=== PATIENT | female | born 1980 | race Caucasian/White ===

== ENCOUNTER 2017-09-10 06:40 | Emergency (ER) | payer BC, OTHER, SELFPAY ==
[2017-09-10 07:02] VITALS: BP 146/97
[2017-09-10] MEDS ORDERED: methylPREDNISolone Sodium Succinate 125 MG/2 ML SDV IM STA (07:31)
--- NOTE | 2017-09-10 07:32 | EDM.PDOC ---
ED HPI GENERAL MEDICAL PROBLEM - General Chief Complaint: General Stated Complaint: SORE THROAT/CAN'T EAT CAN'T DRINK Time Seen by Provider: 09/10/17 07:22 Source of Information: Reports: Patient History Limitations: Reports: No Limitations - History of Present Illness INITIAL COMMENTS - FREE TEXT/NARRATIVE: Angelina is a 37 yo female who presents to the ER this morning with concerns of a sore throat. States she started to notice discomfort yesterday afternoon and has gotten worse since. States she has difficulty swallowing or eating anything. Has a history of strep throat. Also is complaining of left ear pain. 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 Right Throat Pain Score (Numeric/FACES): 8 - Related Data Allergies Allergy/AdvReac Type Severity Reaction Status Date / Time cefaclor [From Ceclor] Allergy Rash Verified 09/10/17 06:47 sumatriptan [From Imitrex] Allergy Airway Verified 09/10/17 06:47 Tightness sumatriptan succinate Allergy Airway Verified 09/10/17 06:47 [From Imitrex] Tightness Home Meds: Home Meds Calcium Carbonate [Calcium] 1,000 mg PO DAILY 03/06/14 [History] Cholecalciferol (Vitamin D3) [Vitamin D3] 4,000 unit PO DAILY 03/06/14 [History] Desog-E.Estradiol/E.Estradiol [Azurette 28 Day] 1 each PO DAILY 03/06/14 [ History] Pantoprazole Sodium [Protonix] 40 mg PO DAILY 03/06/14 [History] Vitamin B Complex [Super B-50 Complex] 1 each PO DAILY 03/06/14 [History] Naratriptan HCl [Naratriptan] 2.5 mg PO BID PRN 10/12/15 [History] Cyclobenzaprine [Flexeril] 10 mg PO BEDTIME PRN 06/18/16 [History] Albuterol/Ipratropium [DuoNeb 3.0-0.5 MG/3 ML] 3 ml NEB QIDRT 7 Days neb [Rx] Past Medical History HEENT History: Reports: Impaired Vision Respiratory History: Reports: Pneumonia, Recurrent Gastrointestinal History: Reports: GERD Genitourinary History: Reports: None 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: Neurological History: Reports: Migraines Endocrine/Metabolic History: Reports: Other (See Below) Other Endocrine/Metabolic History: LUMPS ON THRYOID - Infectious Disease History Infectious Disease History: Reports: Chicken Pox - Past Surgical History GI Surgical History: Reports: Appendectomy, Cholecystectomy Female Surgical History: Reports: Section Social & Family History - Family History Family Medical History: Noncontributory - Tobacco Use Smoking Status *Q: Current Every Day Smoker Years of Tobacco use: 6 Packs/Tins Daily: 0.5 Second Hand Smoke Exposure: No - Recreational Drug Use Recreational Drug Use: No ED ROS GENERAL - Review of Systems Review Of Systems: See Below Constitutional: Reports: Decreased Appetite HEENT: Reports: Ear Pain, Throat Pain. Denies: Ear Discharge, Sinus Problem Respiratory: Reports: No Symptoms Cardiovascular: Reports: No Symptoms ED EXAM, GENERAL - Physical Exam Exam: See Below Exam Limited By: No Limitations General Appearance: Alert, No Apparent Distress Ears: Normal External Exam, Normal Canal, Hearing Grossly Normal, Normal TMs Nose: Normal Inspection, No Blood Throat/Mouth: Normal Inspection, Normal Voice, No Airway Compromise, Other ( mild erythema in posterior pharynx. No exudate noted. ) Head: Atraumatic, Normocephalic Neck: Tender Lateral. No: Lymphadenopathy (L), Lymphadenopathy (R) Respiratory/Chest: No Respiratory Distress, Lungs Clear, Normal Breath Sounds, No Accessory Muscle Use Cardiovascular: Regular Rate, Rhythm, No Murmur Skin Exam: Warm, Dry, Intact, Normal Color, No Rash Lymphatic: No Adenopathy Course - Vital Signs Last Recorded V/S: Last Vital Signs Temp 97.7 F 09/10/17 06:50 Pulse 97 09/10/17 06:50 Resp 18 09/10/17 06:50 BP 146/97 H 09/10/17 06:50 Pulse Ox 98 09/10/17 06:50 - Orders/Labs/Meds Meds: Medications Discontinued Medications Generic Name Dose Route Start Last Admin Trade Name Arleen PRN Reason Stop Dose Admin Methylprednisolone Sodium Succinate 125 mg 09/10/17 07:31 09/10/17 07:37 Solu-Medrol IM 09/10/17 07:32 125 mg NOW STA Administration Departure - Departure Time of Disposition: 07:40 Disposition: Home, Self-Care 01 Clinical Impression: Sore throat (viral) - Discharge Information Instructions: Viral Respiratory Infection, [id number] Referrals: Chetan Leyva MD [Primary Care Provider] - Forms: ED Department Discharge Additional Instructions: 1) Rest 2) Recommend soft foods/liquid diet 3) Push fluids 4) Recommend Tylenol and ibuprofen for discomfort 5) May try OTC therapies as well as discussed, Mucinex, etc... 6) If symptoms worsen or any concerns, recommend reevaluation. - Problem List & Annotations (1) Sore throat (viral) SNOMED Code(s): 7055398 Code(s): J02.9 - ACUTE PHARYNGITIS, UNSPECIFIED Status: Acute - Problem List Review Problem List Initiated/Reviewed/Updated: Yes - Assessment/Plan Plan: Strep screen is negative. No current fevers. Discussed viral etiology and symptomatic cares. Follow up if any concerns.
== END 2017-09-10 07:40 | disposition home or self-care (01) ==
LOC: CC.ED 06:40
DX: J02.8 Acute pharyngitis due to other specified organisms (principal); K21.9 Gastro-esophageal reflux disease without esophagitis; F17.210 Nicotine dependence, cigarettes, uncomplicated; Z79.899 Other long term (current) drug therapy; Z88.1 Allergy status to other antibiotic agents; Z88.8 Allergy status to other drugs, medicaments and biological substances
CPT/HCPCS: 87430; 96372; 99282; J2930

== ENCOUNTER 2019-08-19 00:55 | Inpatient (IN) | payer OTHER ==
[2019-08-19] MEDS ORDERED: Acetaminophen 500 MG Tab PO ONE (01:06)
[2019-08-19 01:45] LABS: CHLORIDE,CL 102 mEq/L (98-106); SODIUM,NA 138 mEq/L (136-145)
--- NOTE | 2019-08-19 01:58 | EDM.PDOC ---
ED HPI GENERAL MEDICAL PROBLEM - General Chief Complaint: Fever Stated Complaint: "Chills, nauseated and pain on right side" Time Seen by Provider: 08/19/19 01:22 Source of Information: Reports: Patient History Limitations: Reports: No Limitations - History of Present Illness INITIAL COMMENTS - FREE TEXT/NARRATIVE: Patient presents to ER with right side pain and chills. States started having intermittent pain on Friday but much worse this evening. Reports could not stop shaking at home. Feels mildly nauseated. No vomiting. No blood in stool , diarrhea or constipation. Does admit to burning with urination, no noted blood. No vaginal bleeding or discharge. Denies dyspareunia. Reports was seen recently for hypertension, started on Lisinopril. Worried about her kidney due to pain. Has been trying to push fluids. Decreased solid food intake. History of appendectomy and cholecystectomy. Onset: Gradual Duration: Day(s):, Getting Worse Location: Reports: Abdomen Quality: Reports: Sharp, Stabbing Severity: Severe Associated Symptoms: Reports: Cough, Fever/Chills, Loss of Appetite, Nausea/ Vomiting. Denies: Chest Pain, Headaches, Shortness of Breath Right Back Pain Score (Numeric/FACES): 8 - Related Data Allergies Allergy/AdvReac Type Severity Reaction Status Date / Time cefaclor [From Ceclor] Allergy Rash Verified 08/19/19 01:24 sumatriptan [From Imitrex] Allergy Airway Verified 08/19/19 01:24 Tightness sumatriptan succinate Allergy Airway Verified 08/19/19 01:24 [From Imitrex] Tightness Home Meds: Home Meds Calcium Carbonate [Calcium] 1,000 mg PO DAILY 03/06/14 [History] Cholecalciferol (Vitamin D3) [Vitamin D3] 4,000 unit PO DAILY 03/06/14 [History] Desog-E.Estradiol/E.Estradiol [Azurette 28 Day] 1 each PO DAILY 03/06/14 [ History] Vitamin B Complex [Super B-50 Complex] 1 each PO DAILY 03/06/14 [History] Naratriptan HCl [Naratriptan] 2.5 mg PO BID PRN 10/12/15 [History] Cyclobenzaprine [Flexeril] 10 mg PO BEDTIME PRN 06/18/16 [History] Albuterol/Ipratropium [DuoNeb 3.0-0.5 MG/3 ML] 3 ml NEB QIDRT 7 Days neb [Rx] Dexlansoprazole [Dexilant] 60 mg PO DAILY 08/19/19 [History] Hydrocodone/Acetaminophen [Hydrocodon-Acetaminophen 5-325] 1 each PO ASDIRECTED 08/19/19 [History] Lisinopril [Zestril] 10 mg PO DAILY 08/19/19 [History] Zolpidem [Ambien] 5 mg BEDTIME 08/19/19 [History] Past Medical History HEENT History: Reports: Impaired Vision Respiratory History: Reports: Pneumonia, Recurrent Gastrointestinal History: Reports: GERD Genitourinary History: Reports: None 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: Neurological History: Reports: Migraines Endocrine/Metabolic History: Reports: Other (See Below) Other Endocrine/Metabolic History: LUMPS ON THRYOID - Infectious Disease History Infectious Disease History: Reports: Chicken Pox - Past Surgical History GI Surgical History: Reports: Appendectomy, Cholecystectomy Female Surgical History: Reports: Section Social & Family History - Family History Family Medical History: Noncontributory - Tobacco Use Smoking Status *Q: Former Smoker Years of Tobacco use: 5 Used Tobacco, but Quit: No - Recreational Drug Use Recreational Drug Use: No ED ROS GENERAL - Review of Systems Review Of Systems: See Below Constitutional: Reports: Fever, Chills, Malaise, Weakness, Fatigue, Decreased Appetite HEENT: Reports: Ear Pain. Denies: Sinus Problem, Throat Pain, Vertigo Respiratory: Reports: Cough. Denies: Shortness of Breath Cardiovascular: Denies: Chest Pain, Edema, Lightheadedness Endocrine: Reports: Fatigue GI/Abdominal: Reports: Abdominal Pain, Decreased Appetite, Nausea. Denies: Constipation, Diarrhea, Vomiting : Reports: Dysuria, Frequency Musculoskeletal: Reports: No Symptoms Skin: Reports: No Symptoms Neurological: Reports: No Symptoms ED EXAM, GI/ABD - Physical Exam Exam: See Below Exam Limited By: No Limitations General Appearance: Alert, WD/WN, Mild Distress Ears: Normal External Exam, Normal TMs Nose: Normal Inspection, Normal Mucosa, No Blood Throat/Mouth: Normal Inspection, Normal Oropharynx Head: Normocephalic Neck: Normal Inspection, Supple, Non-Tender Respiratory/Chest: No Respiratory Distress, Lungs Clear, Normal Breath Sounds Cardiovascular: Regular Rate, Rhythm GI/Abdominal Exam: Normal Bowel Sounds, Soft, Guarding, Tender (RUQ, RLQ, flank area) Back Exam: Normal Inspection Extremities: Normal Inspection, No Pedal Edema Neurological: Alert, Oriented Skin Exam: Warm, Dry Course - Vital Signs Last Recorded V/S: Last Vital Signs Temp 104.0 F H 08/19/19 01:18 Pulse 130 H 08/19/19 01:18 Resp 20 08/19/19 01:18 BP 143/78 H 08/19/19 01:18 Pulse Ox 100 08/19/19 01:18 - Orders/Labs/Meds Orders: Active Orders 24 hr Category Date Time Status C-REACTIVE PROTEIN [CHEM] Stat Lab 08/19/19 01:21 Received COMPREHENSIVE METABOLIC PN,CMP [CHEM] Stat Lab 08/19/19 01:21 Received CULTURE BLOOD [BC] Stat Lab 08/19/19 01:18 Received CULTURE BLOOD [BC] Stat Lab 08/19/19 01:36 Received CULTURE URINE [RM] Stat Lab 08/19/19 01:21 Received Blood Culture x2 Reflex Set [OM.PC] Stat Oth 08/19/19 01:13 Ordered Labs: Laboratory Tests 08/19/19 08/19/19 08/19/19 Range/Units 01:21 01:21 01:21 WBC 10.2 H (5.0-10.0) 10^3/uL RBC 4.26 (4.00-5.50) 10^6/uL Hgb 12.3 (12.0-16.0) g/dL Hct 37.0 (37.0-47.0) % MCV 86.9 (82.0-94.0) fL MCH 28.9 (27.0-32.0) pg MCHC 33.2 (33.0-38.0) g/dL RDW Coeff of Miriam 13.1 (11.0-15.0) % Plt Count 228 (150-400) 10^3/uL Neut % (Auto) 90.5 H (35-85) % Lymph % (Auto) 6.5 L (10-55) % [place] % (Auto) 2.5 (0-16) % Eos % (Auto) 0.3 (0-5) % Baso % (Auto) 0.2 (0-3) % Neut # (Auto) 9.22 H (1.80-7.00) 10^3/uL Lymph # (Auto) 0.66 L (1.00-4.80) 10^3/uL [place] # (Auto) 0.25 (0.00-0.80) 10^3/uL Eos # (Auto) 0.03 (0.00-0.45) 10^3/uL Baso # (Auto) 0.02 10^3/uL Lactic Acid 1.5 (0.4-2.0) mmol/L Urine Color Straw (YELLOW) Urine Appearance Slightly cloudy (CLEAR) Urine pH 5.5 (4.5-8.0) Ur Specific [place] 1.015 (1.003-1.020) Urine Protein 100 H (NEGATIVE) mg/dL Urine Glucose (UA) Negative (NEGATIVE) mg/dL Urine Ketones Negative (NEGATIVE) mg/dL Urine Occult Blood Moderate H (NEGATIVE) Urine Nitrite Positive H (NEGATIVE) Urine Bilirubin Negative (NEGATIVE) Urine Urobilinogen 0.2 (0.2-1.0) EU/dL Ur Leukocyte Esterase Trace H (NEGATIVE) Urine RBC 10-20 H (0-5) /HPF Urine WBC 75-100 H (0-5) /HPF Urine WBC Clumps Few H (NOT SEEN) /HPF Ur Squamous Epith Cells Few H (NOT SEEN) /HPF Urine Bacteria Moderate H (NOT SEEN) /HPF Urinalysis Comment See note Meds: Medications Discontinued Medications Generic Name Dose Route Start Last Admin Trade Name Freq PRN Reason Stop Dose Admin Acetaminophen 1,000 mg 08/19/19 01:06 08/19/19 01:11 Tylenol Extra Strength PO 08/19/19 01:07 1,000 mg ONETIME ONE Administration - Re-Assessments/Exams Free Text/Narrative Re-Assessment/Exam: 08/19/19 02:00 Labs noted. WBC mildly elevated, CRP 17.0. Lactic acid normal. UA positive. Discussed with patient. Due to high fever, pyelonephritis, will admit to inpatient for IV antibiotics, IV fluids. Departure - Departure Time of Disposition: 02:02 Disposition: Admitted As Inpatient 67 Condition: Fair Clinical Impression: Pyelonephritis - Discharge Information *PRESCRIPTION DRUG MONITORING PROGRAM REVIEWED*: No *COPY OF PRESCRIPTION DRUG MONITORING REPORT IN PATIENT JUSTIN: No Sepsis Event Note - Evaluation Sepsis Screening Result: Possible Sepsis Risk - Focused Exam Vital Signs: Vital Signs Temp Temp Pulse Resp BP Pulse Ox 08/19/19 01:18 104.0 F H 130 H 20 143/78 H 100 08/19/19 01:11 104.0 F H Date Exam was Performed: 08/19/19 Time Exam was Performed: 01:52 - Problem List & Annotations (1) Pyelonephritis SNOMED Code(s): 52022814 Code(s): N12 - TUBULO-INTERSTITIAL NEPHRITIS, NOT SPCF ACUTE OR CHRONIC Status: Acute Priority: High - Problem List Review Problem List Initiated/Reviewed/Updated: Yes - My Orders Last 24 Hours: My Active Orders 08/19/19 01:13 Blood Culture x2 Reflex Set [OM.PC] Stat 08/19/19 01:18 CULTURE BLOOD [BC] Stat 08/19/19 01:21 C-REACTIVE PROTEIN [CHEM] Stat COMPREHENSIVE METABOLIC PN,CMP [CHEM] Stat CULTURE URINE [RM] Stat 08/19/19 01:36 CULTURE BLOOD [BC] Stat - Assessment/Plan Admission H&P: Please use this note as an admission H&P Last 24 Hours: My Active Orders 08/19/19 01:13 Blood Culture x2 Reflex Set [OM.PC] Stat 08/19/19 01:18 CULTURE BLOOD [BC] Stat 08/19/19 01:21 C-REACTIVE PROTEIN [CHEM] Stat COMPREHENSIVE METABOLIC PN,CMP [CHEM] Stat CULTURE URINE [RM] Stat 08/19/19 01:36 CULTURE BLOOD [BC] Stat Assessment:: Pyelonephritis Plan: Admit inpatient. IV fluids. Start IV Levaquin. Tylenol for fevers.
[2019-08-19] MEDS ORDERED: Ondansetron 4 MG Tab.DIS PO PRN (02:16)
[2019-08-19] MEDS ORDERED: Ondansetron 4 MG/2 ML SDV IV PRN (02:16)
[2019-08-19] MEDS ORDERED: Take Home: Acetaminophen/HYDROcodone 325-5 MG, 2 Tab Pack PO SCH (02:16)
[2019-08-19] MEDS ORDERED: Sodium Chloride 0.9% 10 ML Syringe FLUSH PRN (02:16)
[2019-08-19] MEDS ORDERED: NARATRIPTAN HCL 2.5 MG PO PRN (02:16)
[2019-08-19] MEDS: Lactated Ringers 1,000 ML IV SCH ×3 (02:49→19:56)
[2019-08-19] MEDS: fentaNYL 100 MCG/2 ML SDV IVPUSH PRN ×4 (02:49→19:54)
[2019-08-19] MEDS: Levofloxacin/Dextrose 5%-Water 750 MG in Premix Bag 1 BAG IV SCH (02:52)
[2019-08-19] MEDS: Enoxaparin 40 MG/0.4 ML Syringe SUBCUT SCH (02:52)
[2019-08-19] MEDS: Lisinopril 10 MG Tab PO SCH (07:50)
[2019-08-19] MEDS: Pantoprazole 40 MG Tab.CR PO SCH (07:50)
[2019-08-19] MEDS: Albuterol/Ipratropium 3.0-0.5 MG/3 ML Neb Soln NEB SCH ×2 (07:57→12:07)
[2019-08-19] MEDS ORDERED: [UNRECOGNIZED DRUG - OTHER] PO SCH (08:00)
[2019-08-19] MEDS ORDERED: E ESTRADIOL PO SCH (08:00)
[2019-08-19] MEDS ORDERED: DESOG E ESTRADIOL PO SCH (08:00)
[2019-08-19] MEDS: Acetaminophen 325 MG Tab PO PRN ×3 (09:21→19:55)
[2019-08-19] MEDS: Acetaminophen/HYDROcodone 325-5 MG Tab PO PRN (12:06)
[2019-08-19] MEDS: Ibuprofen 200 MG Tab PO PRN ×2 (17:09→22:18)
[2019-08-19] MEDS: Zolpidem 5 MG Tab PO SCH (19:55)
[2019-08-19] MEDS: Cyclobenzaprine 10 MG Tab PO PRN (22:45)
[2019-08-20] MEDS: Acetaminophen/HYDROcodone 325-5 MG Tab PO PRN ×4 (00:05→19:52)
[2019-08-20] MEDS: Levofloxacin/Dextrose 5%-Water 750 MG in Premix Bag 1 BAG IV SCH (02:18)
[2019-08-20] MEDS: Enoxaparin 40 MG/0.4 ML Syringe SUBCUT SCH (02:18)
[2019-08-20] MEDS: Lactated Ringers 1,000 ML IV SCH ×3 (03:52→21:41)
[2019-08-20] MEDS: fentaNYL 100 MCG/2 ML SDV IVPUSH PRN ×3 (03:57→23:09)
[2019-08-20] MEDS: Pantoprazole 40 MG Tab.CR PO SCH (06:18)
[2019-08-20 07:26] LABS: CHLORIDE,CL 104 mEq/L (98-106); SODIUM,NA 140 mEq/L (136-145)
[2019-08-20] MEDS: Lisinopril 10 MG Tab PO SCH (07:53)
[2019-08-20] MEDS: NORETHINDRONE 0.35 MG PO SCH (08:35)
[2019-08-20] MEDS: Acetaminophen 325 MG Tab PO PRN ×2 (11:33→22:10)
[2019-08-20] MEDS: Ibuprofen 200 MG Tab PO PRN ×2 (12:52→19:38)
--- NOTE | 2019-08-20 14:02 | PCM.PN ---
- General Info Date of Service: 08/20/19 Admission Dx/Problem (Free Text): Pyelonephritis Functional Status: Reports: Pain Controlled (with pain meds), Tolerating Diet, Ambulating - Review of Systems General: Reports: Fever, Weakness, Fatigue, Malaise, Chills HEENT: Reports: No Symptoms Pulmonary: Denies: Shortness of Breath, Cough Cardiovascular: Denies: Chest Pain, Edema, Lightheadedness Gastrointestinal: Reports: Abdominal Pain. Denies: Nausea, Vomiting Genitourinary: Reports: Frequency. Denies: Dysuria Musculoskeletal: Reports: No Symptoms Skin: Reports: No Symptoms Neurological: Reports: Headache - Patient Data Vitals - Most Recent: Last Vital Signs Temp 100.6 F 08/20/19 12:52 Pulse 100 08/20/19 11:38 Resp 18 08/20/19 11:38 BP 141/79 H 08/20/19 11:38 Pulse Ox 98 08/20/19 11:38 Weight - Most Recent: 192 lb 7.417 oz I&O - Last 24 Hours: Intake & Output 08/19/19 08/20/19 08/20/19 22:59 06:59 14:59 Intake Total 3649 2192 300 Output Total 3000 1200 1100 Balance 649 992 -800 Lab Results Last 24 Hours: Laboratory Results - last 24 hr 08/20/19 08/20/19 Range/Units 06:50 06:50 WBC 6.1 (5.0-10.0) 10^3/uL RBC 3.84 L (4.00-5.50) 10^6/uL Hgb 11.0 L (12.0-16.0) g/dL Hct 34.3 L (37.0-47.0) % MCV 89.3 (82.0-94.0) fL MCH 28.6 (27.0-32.0) pg MCHC 32.1 L (33.0-38.0) g/dL RDW Coeff of Miriam 13.1 (11.0-15.0) % Plt Count 206 (150-400) 10^3/uL Neut % (Auto) 74.4 (35-85) % Lymph % (Auto) 16.5 (10-55) % [place] % (Auto) 7.8 (0-16) % Eos % (Auto) 1.0 (0-5) % Baso % (Auto) 0.3 (0-3) % Neut # (Auto) 4.51 (1.80-7.00) 10^3/uL Lymph # (Auto) 1.00 (1.00-4.80) 10^3/uL [place] # (Auto) 0.47 (0.00-0.80) 10^3/uL Eos # (Auto) 0.06 (0.00-0.45) 10^3/uL Baso # (Auto) 0.02 10^3/uL Sodium 140 (136-145) mEq/L Potassium 3.9 (3.5-5.0) mEq/L Chloride 104 (98-106) mEq/L Carbon Dioxide 28 (21-32) mmol/L BUN 5 L (7-18) mg/dL Creatinine 0.6 (0.6-1.0) mg/dL Est Cr Clr Drug Dosing 105.16 mL/min Estimated GFR (MDRD) > 60 (>=60) mL/min Glucose 87 (75-99) mg/dL Calcium 8.4 (8.4-10.1) mg/dL C-Reactive Protein 25.0 H (0.2-0.8) mg/dL John Results Last 24 Hours: Microbiology 08/19/19 01:36 Aerobic Blood Culture - Preliminary Blood - Venous - Lab Draw NO GROWTH AFTER 1 DAY Anaerobic Blood Culture - Preliminary Gram Negative Rods 08/19/19 01:18 Aerobic Blood Culture - Preliminary Blood - Venous NO GROWTH AFTER 1 DAY Anaerobic Blood Culture - Preliminary Gram Negative Rods 08/19/19 01:21 Urine Culture - Final Urine, Voided Escherichia Coli Med Orders - Current: Current Medications Acetaminophen (Tylenol) 650 mg PO Q4H PRN PRN Reason: Pain (Mild 1-3)/fever Last Admin: 08/20/19 11:33 Dose: 650 mg Hydrocodone Bitart/Acetaminophen ([place] 325-5 Mg) 1 tab PO Q6H PRN PRN Reason: Pain Last Admin: 08/20/19 12:56 Dose: 1 tab Cyclobenzaprine HCl (Flexeril) 10 mg PO BEDTIME PRN PRN Reason: Muscle Spasm Last Admin: 08/19/19 22:45 Dose: 10 mg Enoxaparin Sodium (Lovenox) 40 mg SUBCUT DAILY MADELYN Fentanyl (Sublimaze) 25 mcg IVPUSH Q2H PRN PRN Reason: Pain Last Admin: 08/20/19 09:46 Dose: 25 mcg Lactated Ringer's (Ringers, Lactated) 1,000 mls @ 125 mls/hr IV ASDIRECTED [facility] Last Admin: 08/20/19 03:52 Dose: 125 mls/hr Levofloxacin/Dextrose 750 mg/ (Premix) 150 mls @ 100 mls/hr IV DAILY [facility] Ibuprofen (Motrin) 400 mg PO Q6H PRN PRN Reason: Fever Last Admin: 08/20/19 12:52 Dose: 400 mg Lisinopril (Prinivil) 10 mg PO DAILY [facility] Last Admin: 08/20/19 07:53 Dose: 10 mg Ortho Micronor 0.35 (Mg Own Med) 0 mg PO DAILY [facility] Last Admin: 08/20/19 08:35 Dose: 0.35 mg Ondansetron HCl (Zofran Odt) 4 mg PO Q4H PRN PRN Reason: nausea, able to take PO Last Admin: 08/19/19 17:09 Dose: 4 mg Ondansetron HCl (Zofran) 4 mg IV Q4H PRN PRN Reason: Nausea/Vomiting Pantoprazole Sodium (Protonix) 40 mg PO ACBREAKFAST [facility] Last Admin: 08/20/19 06:18 Dose: 40 mg Sodium Chloride (Saline Flush) 10 ml FLUSH ASDIRECTED PRN PRN Reason: Keep Vein Open Zolpidem Tartrate (Ambien) 5 mg PO BEDTIME [facility] Last Admin: 08/19/19 19:55 Dose: 5 mg Discontinued Medications Acetaminophen (Tylenol Extra Strength) 1,000 mg PO ONETIME ONE Stop: 08/19/19 01:07 Last Admin: 08/19/19 01:11 Dose: 1,000 mg Hydrocodone Bitart/Acetaminophen (Take Home: Acetaminophen/Hydrocod, 2 Tab Pack ) packet PO ASDIRECTED [facility] Albuterol/Ipratropium (Duoneb 3.0-0.5 Mg/3 Ml) 3 ml NEB QIDRT [facility] Last Admin: 08/19/19 12:07 Dose: 3 ml Enoxaparin Sodium (Lovenox) 40 mg SUBCUT Q24H [facility] Last Admin: 08/20/19 02:18 Dose: 40 mg Levofloxacin/Dextrose 750 mg/ (Premix) 150 mls @ 100 mls/hr IV Q24H [facility] Last Admin: 08/20/19 02:18 Dose: 100 mls/hr Non-Formulary Medication (Desog-E.Estradiol/E.Estradiol [Azurette 28 Day]) 1 each PO DAILY [facility] Last Admin: 08/19/19 14:45 Dose: Not Given Non-Formulary Medication (Naratriptan Hcl [Naratriptan]) 2.5 mg PO BID PRN PRN Reason: Headache - Exam General: Alert, Oriented HEENT: Mucous Membr. Moist/[place] Neck: Supple Lungs: Clear to Auscultation, Normal Respiratory Effort Cardiovascular: Regular Rate, Regular Rhythm GI/Abdominal Exam: Normal Bowel Sounds, Soft, Tender (right lower quadrant and right flank area) Extremities: Normal Inspection, No Pedal Edema Skin: Warm, Dry Neurological: No New Focal Deficit Sepsis Event Note - Evaluation Sepsis Screening Result: No Definite Risk - Focused Exam Vital Signs: Vital Signs Temp Temp Pulse Resp BP BP Pulse Ox 08/20/19 12:52 100.6 F 08/20/19 11:38 100.0 F 100 18 141/79 H 98 08/20/19 08:00 98.6 F 90 16 130/83 98 08/20/19 07:53 130/83 08/20/19 04:00 97.7 F 81 16 119/67 100 Date Exam was Performed: 08/20/19 Time Exam was Performed: 13:48 - Problem List & Annotations (1) Pyelonephritis SNOMED Code(s): 10271264 Code(s): N12 - TUBULO-INTERSTITIAL NEPHRITIS, NOT SPCF ACUTE OR CHRONIC Status: Acute Priority: High Current Visit: Yes - Problem List Review Problem List Initiated/Reviewed/Updated: Yes - My Orders Last 24 Hours: My Active Orders 08/19/19 16:25 Ibuprofen [Motrin] 400 mg PO Q6H PRN 08/19/19 20:00 Zolpidem [Ambien] 5 mg PO BEDTIME 08/20/19 08:00 Orthomicronor 0 mg PO DAILY 08/21/19 08:00 Enoxaparin [Lovenox] 40 mg SUBCUT DAILY Levofloxacin/Dextrose 5%-Water [Levaquin in D5W 750 MG/150 ML] 750 mg Premix Bag 1 bag IV DAILY - Assessment Assessment:: Pyelonephritis - Plan Plan:: Patient states is feeling better, less burning with urination. Does still have right side pain/right flank pain. Feels the "sharp pain that was stabbing is now gone, more sore than anything". Mild nausea at times. Fentanyl does control the pain. Appetite is good. Did still spike a fever up to 104 yesterday afternoon. WBC 6.1, CRP up to 25 today. Electrolytes normal. Will continue with IV fluids. IV Levaquin every 24 hours. Fever control. Fentanyl or norco for pain. Repeat labs in am.
[2019-08-20] MEDS: Zolpidem 5 MG Tab PO SCH (19:52)
[2019-08-20] MEDS: Cyclobenzaprine 10 MG Tab PO PRN (22:10)
[2019-08-21] MEDS: Lactated Ringers 1,000 ML IV SCH ×3 (05:54→23:34)
[2019-08-21] MEDS: Ibuprofen 200 MG Tab PO PRN ×2 (05:54→16:15)
[2019-08-21] MEDS: Acetaminophen/HYDROcodone 325-5 MG Tab PO PRN ×2 (05:54→15:40)
[2019-08-21] MEDS: Pantoprazole 40 MG Tab.CR PO SCH (06:52)
[2019-08-21] MEDS: Levofloxacin/Dextrose 5%-Water 750 MG in Premix Bag 1 BAG IV SCH (07:45)
[2019-08-21] MEDS: Lisinopril 10 MG Tab PO SCH (07:45)
[2019-08-21] MEDS: Enoxaparin 40 MG/0.4 ML Syringe SUBCUT SCH (07:46)
[2019-08-21 07:50] LABS: CHLORIDE,CL 104 mEq/L (98-106); SODIUM,NA 141 mEq/L (136-145)
[2019-08-21] MEDS: NORETHINDRONE 0.35 MG PO SCH (08:17)
[2019-08-21] MEDS: fentaNYL 100 MCG/2 ML SDV IVPUSH PRN (12:44)
--- NOTE | 2019-08-21 13:01 | PCM.PN ---
- General Info Date of Service: 08/21/19 Admission Dx/Problem (Free Text): Pyelonephritis Functional Status: Reports: Pain Controlled - Review of Systems General: Reports: Fever HEENT: Reports: No Symptoms Pulmonary: Reports: No Symptoms. Denies: Shortness of Breath Cardiovascular: Reports: No Symptoms. Denies: Chest Pain Gastrointestinal: Reports: No Symptoms. Denies: Abdominal Pain Genitourinary: Reports: Flank Pain (right). Denies: Frequency, Burning Musculoskeletal: Reports: No Symptoms. Denies: Neck Pain, Back Pain, Leg Pain Skin: Reports: No Symptoms Neurological: Reports: No Symptoms Psychiatric: Reports: No Symptoms - Patient Data Vitals - Most Recent: Last Vital Signs Temp 37.0 C 08/21/19 12:00 Pulse 80 08/21/19 12:00 Resp 16 08/21/19 12:00 BP 149/90 H 08/21/19 12:00 Pulse Ox 100 08/21/19 12:00 Weight - Most Recent: 87.3 kg I&O - Last 24 Hours: Intake & Output 08/20/19 08/21/19 08/21/19 22:59 06:59 14:59 Intake Total 4942 1900 280 Output Total 3400 2000 Balance 1542 -100 280 Lab Results Last 24 Hours: Laboratory Results - last 24 hr 08/21/19 08/21/19 Range/Units 07:10 07:10 WBC 5.4 (5.0-10.0) 10^3/uL RBC 3.77 L (4.00-5.50) 10^6/uL Hgb 10.9 L (12.0-16.0) g/dL Hct 33.3 L (37.0-47.0) % MCV 88.3 (82.0-94.0) fL MCH 28.9 (27.0-32.0) pg MCHC 32.7 L (33.0-38.0) g/dL RDW Coeff of Miriam 12.8 (11.0-15.0) % Plt Count 212 (150-400) 10^3/uL Neut % (Auto) 71.4 (35-85) % Lymph % (Auto) 19.3 (10-55) % [place] % (Auto) 8.0 (0-16) % Eos % (Auto) 0.9 (0-5) % Baso % (Auto) 0.4 (0-3) % Neut # (Auto) 3.82 (1.80-7.00) 10^3/uL Lymph # (Auto) 1.03 (1.00-4.80) 10^3/uL [place] # (Auto) 0.43 (0.00-0.80) 10^3/uL Eos # (Auto) 0.05 (0.00-0.45) 10^3/uL Baso # (Auto) 0.02 10^3/uL Sodium 141 (136-145) mEq/L Potassium 4.1 (3.5-5.0) mEq/L Chloride 104 (98-106) mEq/L Carbon Dioxide 27 (21-32) mmol/L BUN 6 L (7-18) mg/dL Creatinine 0.6 (0.6-1.0) mg/dL Est Cr Clr Drug Dosing 105.16 mL/min Estimated GFR (MDRD) > 60 (>=60) mL/min Glucose 96 (75-99) mg/dL Calcium 8.7 (8.4-10.1) mg/dL C-Reactive Protein 20.4 H (0.2-0.8) mg/dL John Results Last 24 Hours: Microbiology 08/19/19 01:18 Aerobic Blood Culture - Preliminary Blood - Venous NO GROWTH AFTER 2 DAYS Anaerobic Blood Culture - Final Escherichia Coli 08/19/19 01:36 Aerobic Blood Culture - Preliminary Blood - Venous - Lab Draw NO GROWTH AFTER 2 DAYS Anaerobic Blood Culture - Preliminary Gram Negative Rods 08/19/19 01:21 Urine Culture - Final Urine, Voided Escherichia Coli Med Orders - Current: Current Medications Acetaminophen (Tylenol) 650 mg PO Q4H PRN PRN Reason: Pain (Mild 1-3)/fever Last Admin: 08/20/19 22:10 Dose: 650 mg Hydrocodone Bitart/Acetaminophen ([place] 325-5 Mg) 1 tab PO Q6H PRN PRN Reason: Pain Last Admin: 08/21/19 05:54 Dose: 1 tab Cyclobenzaprine HCl (Flexeril) 10 mg PO BEDTIME PRN PRN Reason: Muscle Spasm Last Admin: 08/20/19 22:10 Dose: 10 mg Enoxaparin Sodium (Lovenox) 40 mg SUBCUT DAILY [facility] Last Admin: 08/21/19 07:46 Dose: 40 mg Fentanyl (Sublimaze) 25 mcg IVPUSH Q2H PRN PRN Reason: Pain Last Admin: 08/21/19 12:44 Dose: 25 mcg Lactated Ringer's (Ringers, Lactated) 1,000 mls @ 125 mls/hr IV ASDIRECTED [facility] Last Admin: 08/21/19 05:54 Dose: 125 mls/hr Levofloxacin/Dextrose 750 mg/ (Premix) 150 mls @ 100 mls/hr IV DAILY [facility] Last Admin: 08/21/19 07:45 Dose: 100 mls/hr Ibuprofen (Motrin) 400 mg PO Q6H PRN PRN Reason: Fever Last Admin: 08/21/19 05:54 Dose: 400 mg Lisinopril (Prinivil) 10 mg PO DAILY [facility] Last Admin: 08/21/19 07:45 Dose: 10 mg Ortho Micronor 0.35 (Mg Own Med) 0 mg PO DAILY [facility] Last Admin: 08/21/19 08:17 Dose: 0.35 mg Ondansetron HCl (Zofran Odt) 4 mg PO Q4H PRN PRN Reason: nausea, able to take PO Last Admin: 08/19/19 17:09 Dose: 4 mg Ondansetron HCl (Zofran) 4 mg IV Q4H PRN PRN Reason: Nausea/Vomiting Pantoprazole Sodium (Protonix) 40 mg PO ACBREAKFAST [facility] Last Admin: 08/21/19 06:52 Dose: 40 mg Sodium Chloride (Saline Flush) 10 ml FLUSH ASDIRECTED PRN PRN Reason: Keep Vein Open Zolpidem Tartrate (Ambien) 5 mg PO BEDTIME [facility] Last Admin: 08/20/19 19:52 Dose: 5 mg Discontinued Medications Acetaminophen (Tylenol Extra Strength) 1,000 mg PO ONETIME ONE Stop: 08/19/19 01:07 Last Admin: 08/19/19 01:11 Dose: 1,000 mg Hydrocodone Bitart/Acetaminophen (Take Home: Acetaminophen/Hydrocod, 2 Tab Pack ) packet PO ASDIRECTED [facility] Albuterol/Ipratropium (Duoneb 3.0-0.5 Mg/3 Ml) 3 ml NEB QIDRT [facility] Last Admin: 12/19/19 12:07 Dose: 3 ml Enoxaparin Sodium (Lovenox) 40 mg SUBCUT Q24H [facility] Last Admin: 08/20/19 02:18 Dose: 40 mg Levofloxacin/Dextrose 750 mg/ (Premix) 150 mls @ 100 mls/hr IV Q24H [facility] Last Admin: 08/20/19 02:18 Dose: 100 mls/hr Non-Formulary Medication (Desog-E.Estradiol/E.Estradiol [Azurette 28 Day]) 1 each PO DAILY [facility] Last Admin: 08/19/19 14:45 Dose: Not Given Non-Formulary Medication (Naratriptan Hcl [Naratriptan]) 2.5 mg PO BID PRN PRN Reason: Headache - Exam General: Alert, Oriented, Cooperative, No Acute Distress HEENT: Pupils Equal Neck: Supple Lungs: Clear to Auscultation, Normal Respiratory Effort Cardiovascular: Regular Rate, Regular Rhythm, No Murmurs GI/Abdominal Exam: Normal Bowel Sounds, Soft, Non-Tender Back Exam: Normal Inspection, Full Range of Motion, CVA Tenderness (R). No: CVA Tenderness (L) Extremities: Normal Inspection, Normal Range of Motion, Non-Tender, No Pedal Edema, Normal Capillary Refill Peripheral Pulses: 2+: Radial (L), Radial (R) Skin: Warm, Dry, Intact Neurological: No New Focal Deficit, Normal Gait, Normal Speech Psy/Mental Status: Alert, Normal Affect, Normal Mood Sepsis Event Note - Evaluation Sepsis Screening Result: No Definite Risk - Focused Exam Vital Signs: Vital Signs Temp Temp Pulse Resp BP BP Pulse Ox 08/21/19 12:00 37.0 C 80 16 149/90 H 100 08/21/19 07:52 36.8 C 77 16 137/83 100 08/21/19 07:45 137/83 08/21/19 06:54 37.0 C 08/21/19 06:00 37.7 C 08/21/19 05:54 37.7 C 08/21/19 04:00 36.6 C 85 16 116/63 97 Date Exam was Performed: 08/21/19 Time Exam was Performed: 12:52 - Problem List Review Problem List Initiated/Reviewed/Updated: Yes - Assessment Assessment:: Pyelonephritis - Plan Plan:: Patient states is feeling better, less burning with urination. Does still have right side pain/right flank pain. Feels the "sharp pain that was stabbing is now gone, more sore than anything". Mild nausea at times. Fentanyl does control the pain. Appetite is good. Did still spike a fever up to 104 yesterday afternoon. WBC 6.1, CRP up to 25 today. Electrolytes normal. Will continue with IV fluids. IV Levaquin every 24 hours. Fever control. Fentanyl or norco for pain. Repeat labs in am. 08/21/19 1215 pt awake and alert and oriented x 3, still c/o right flank pain, has continued with a fever off and on, no NVD, no cp or sob, WBC and diff are stable, CRP is decreasing, general Chem are neg, C/S does show sensitivity to levaquin, will continue tx plan, will repeat labs in am and if continued improving and no fever will dc in am
[2019-08-21] MEDS: Acetaminophen 325 MG Tab PO PRN ×2 (15:05→20:19)
[2019-08-21] MEDS: Zolpidem 5 MG Tab PO SCH (20:19)
[2019-08-21] MEDS: Cyclobenzaprine 10 MG Tab PO PRN (20:20)
[2019-08-22] MEDS: Ibuprofen 200 MG Tab PO PRN (02:22)
[2019-08-22] MEDS: Acetaminophen/HYDROcodone 325-5 MG Tab PO PRN ×2 (02:23→08:42)
[2019-08-22] MEDS: Pantoprazole 40 MG Tab.CR PO SCH (06:41)
[2019-08-22] MEDS: Lactated Ringers 1,000 ML IV SCH (06:42)
[2019-08-22] MEDS: Levofloxacin/Dextrose 5%-Water 750 MG in Premix Bag 1 BAG IV SCH (08:24)
[2019-08-22] MEDS: Enoxaparin 40 MG/0.4 ML Syringe SUBCUT SCH (08:25)
[2019-08-22] MEDS: Lisinopril 10 MG Tab PO SCH (08:28)
[2019-08-22] MEDS: NORETHINDRONE 0.35 MG PO SCH (08:28)
[2019-08-22 08:29] VITALS: BP 140/60
[2019-08-22 08:30] VITALS: PULSE 84
--- NOTE | 2019-08-22 10:28 | PCM.DCSUM1 ---
Discharge Summary - Hospital Course Diagnosis: Stroke: No Modified Diana Scale: No Symptoms at All Modified Diana Scale Score: 0 - Discharge Data Discharge Date: 08/22/19 Discharge Disposition: Home, Self-Care 01 Condition: Stable - Referral to Home Health Primary Care Physician: PCP None - Patient Instructions Diet: Regular Diet as Tolerated Activity: As Tolerated Driving: May Drive Today Showering/Bathing: May Shower Notify Provider of: Fever, Increased Pain - Discharge Plan *PRESCRIPTION DRUG MONITORING PROGRAM REVIEWED*: No *COPY OF PRESCRIPTION DRUG MONITORING REPORT IN PATIENT JUSTIN: No Prescriptions/Med Rec: Ketorolac [Toradol] 10 mg PO TID PRN 3 Days #12 tab PRN Reason: Pain (Moderate 4-6) Levofloxacin [Levaquin] 500 mg PO DAILY 5 Days #5 tablet Home Medications: Home Meds Calcium Carbonate [Calcium] 1,000 mg PO DAILY 03/06/14 [History] Cholecalciferol (Vitamin D3) [Vitamin D3] 4,000 unit PO DAILY 03/06/14 [History] Vitamin B Complex [Super B-50 Complex] 1 each PO DAILY 03/06/14 [History] Naratriptan HCl [Naratriptan] 2.5 mg PO BID PRN 10/12/15 [History] Cyclobenzaprine [Flexeril] 10 mg PO BEDTIME PRN 06/18/16 [History] Dexlansoprazole [Dexilant] 60 mg PO DAILY 08/19/19 [History] Hydrocodone/Acetaminophen [Hydrocodon-Acetaminophen 5-325] 1 each PO ASDIRECTED 08/19/19 [History] Lisinopril [Zestril] 10 mg PO DAILY 08/19/19 [History] Norethindrone [Ortho Micronor] 0.35 mg PO DAILY 08/19/19 [History] Zolpidem [Ambien] 5 mg BEDTIME 08/19/19 [History] Ketorolac [Toradol] 10 mg PO TID PRN 3 Days #12 tab 08/22/19 [Rx] Levofloxacin [Levaquin] 500 mg PO DAILY 5 Days #5 tablet 08/22/19 [Rx] Patient Handouts: Pyelonephritis, Adult Forms: ED Department Discharge - Discharge Summary/Plan Comment DC Time >30 min.: No Discharge Summary/Plan Comment: increase fluids Levaquin 500mg 1 x a day for 5 days (start tomorrow 08/23/19 Ketoralac 10mg every 8 hours as needed for pain follow up in the clinic this week with your family doctor return to the ER as needed - General Info Date of Service: 08/22/19 Admission Dx/Problem (Free Text: Pyelonephritis Functional Status: Reports: Pain Controlled, Tolerating Diet, Ambulating, Urinating - Review of Systems General: Reports: No Symptoms. Denies: Fever HEENT: Reports: No Symptoms Pulmonary: Reports: No Symptoms Cardiovascular: Reports: No Symptoms Gastrointestinal: Reports: No Symptoms. Denies: Abdominal Pain, Nausea, Vomiting Genitourinary: Reports: No Symptoms. Denies: Frequency, Burning, Pain Musculoskeletal: Reports: No Symptoms. Denies: Neck Pain, Back Pain (noCVA tenderness) Skin: Reports: No Symptoms Neurological: Reports: No Symptoms Psychiatric: Reports: No Symptoms - Patient Data Vitals - Most Recent: Last Vital Signs Temp 36.9 C 08/22/19 08:00 Pulse 84 08/22/19 08:00 Resp 16 08/22/19 08:00 BP 140/60 08/22/19 08:28 Pulse Ox 97 08/22/19 08:00 Weight - Most Recent: 87.3 kg I&O - Last 24 hours: Intake & Output 08/21/19 08/22/19 08/22/19 22:59 06:59 14:59 Intake Total 1500 3675 900 Output Total 2800 3000 1000 Balance -1300 675 -100 RONALD Results - Last 24 hrs: Microbiology 08/19/19 01:36 Aerobic Blood Culture - Preliminary Blood - Venous - Lab Draw NO GROWTH AFTER 3 DAYS Anaerobic Blood Culture - Preliminary Gram Negative Rods 08/19/19 01:18 Aerobic Blood Culture - Preliminary Blood - Venous NO GROWTH AFTER 3 DAYS Anaerobic Blood Culture - Final Escherichia Coli Med Orders - Current: Current Medications Acetaminophen (Tylenol) 650 mg PO Q4H PRN PRN Reason: Pain (Mild 1-3)/fever Last Admin: 08/21/19 20:19 Dose: 650 mg Hydrocodone Bitart/Acetaminophen ([place] 325-5 Mg) 1 tab PO Q6H PRN PRN Reason: Pain Last Admin: 08/22/19 08:42 Dose: 1 tab Cyclobenzaprine HCl (Flexeril) 10 mg PO BEDTIME PRN PRN Reason: Muscle Spasm Last Admin: 08/21/19 20:20 Dose: 10 mg Enoxaparin Sodium (Lovenox) 40 mg SUBCUT DAILY [facility] Last Admin: 08/22/19 08:25 Dose: 40 mg Fentanyl (Sublimaze) 25 mcg IVPUSH Q2H PRN PRN Reason: Pain Last Admin: 08/21/19 12:44 Dose: 25 mcg Lactated Ringer's (Ringers, Lactated) 1,000 mls @ 125 mls/hr IV ASDIRECTED [facility] Last Admin: 08/22/19 06:42 Dose: 125 mls/hr Levofloxacin/Dextrose 750 mg/ (Premix) 150 mls @ 100 mls/hr IV DAILY [facility] Last Admin: 08/22/19 08:24 Dose: 100 mls/hr Ibuprofen (Motrin) 400 mg PO Q6H PRN PRN Reason: Fever Last Admin: 08/22/19 02:22 Dose: 400 mg Lisinopril (Prinivil) 10 mg PO DAILY [facility] Last Admin: 08/22/19 08:28 Dose: 10 mg Ortho Micronor 0.35 (Mg Own Med) 0 mg PO DAILY [facility] Last Admin: 08/22/19 08:28 Dose: 0.35 mg Ondansetron HCl (Zofran Odt) 4 mg PO Q4H PRN PRN Reason: nausea, able to take PO Last Admin: 08/19/19 17:09 Dose: 4 mg Ondansetron HCl (Zofran) 4 mg IV Q4H PRN PRN Reason: Nausea/Vomiting Pantoprazole Sodium (Protonix) 40 mg PO ACBREAKFAST [facility] Last Admin: 08/22/19 06:41 Dose: Not Given Sodium Chloride (Saline Flush) 10 ml FLUSH ASDIRECTED PRN PRN Reason: Keep Vein Open Zolpidem Tartrate (Ambien) 5 mg PO BEDTIME [facility] Last Admin: 08/21/19 20:19 Dose: 5 mg Discontinued Medications Acetaminophen (Tylenol Extra Strength) 1,000 mg PO ONETIME ONE Stop: 08/19/19 01:07 Last Admin: 08/19/19 01:11 Dose: 1,000 mg Hydrocodone Bitart/Acetaminophen (Take Home: Acetaminophen/Hydrocod, 2 Tab Pack ) packet PO ASDIRECTED [facility] Albuterol/Ipratropium (Duoneb 3.0-0.5 Mg/3 Ml) 3 ml NEB QIDRT [facility] Last Admin: 08/19/19 12:07 Dose: 3 ml Enoxaparin Sodium (Lovenox) 40 mg SUBCUT Q24H [facility] Last Admin: 08/20/19 02:18 Dose: 40 mg Levofloxacin/Dextrose 750 mg/ (Premix) 150 mls @ 100 mls/hr IV Q24H [facility] Last Admin: 08/20/19 02:18 Dose: 100 mls/hr Non-Formulary Medication (Desog-E.Estradiol/E.Estradiol [Azurette 28 Day]) 1 each PO DAILY [facility] Last Admin: 08/19/19 14:45 Dose: Not Given Non-Formulary Medication (Naratriptan Hcl [Naratriptan]) 2.5 mg PO BID PRN PRN Reason: Headache - Exam General: Reports: Alert, Oriented HEENT: Reports: Pupils Equal Neck: Reports: Supple Lungs: Reports: Clear to Auscultation, Normal Respiratory Effort Cardiovascular: Reports: Regular Rate, Regular Rhythm, No Murmurs GI/Abdominal Exam: Soft, Non-Tender Back Exam: Reports: Normal Inspection, Full Range of Motion. Denies: CVA Tenderness (L), CVA Tenderness (R) Extremities: Normal Inspection, Normal Range of Motion, Non-Tender, Normal Capillary Refill Skin: Reports: Warm, Dry, Intact Neurological: Reports: No New Focal Deficit Psy/Mental Status: Reports: Alert, Normal Affect, Normal Mood
== END 2019-08-22 11:11 | disposition home or self-care (01) | DRG 872 ==
LOC: CC.ED 00:55 → CC.MS 02:05 → UNDOADMIN 02:13
PROVIDERS: ADMIT Physician Assistant Medical; ATTEND Family Medicine
DX: A41.9 Sepsis, unspecified organism (principal); N12 Tubulo-interstitial nephritis, not specified as acute or chronic; H54.7 Unspecified visual loss; K21.9 Gastro-esophageal reflux disease without esophagitis; G43.909 Migraine, unspecified, not intractable, without status migrainosus; Z90.49 Acquired absence of other specified parts of digestive tract; Z87.891 Personal history of nicotine dependence; Z87.01 Personal history of pneumonia (recurrent); Z79.899 Other long term (current) drug therapy; Z88.1 Allergy status to other antibiotic agents; Z88.8 Allergy status to other drugs, medicaments and biological substances
CPT/HCPCS: 36415; 80048; 80053; 81001; 83605; 85025; 86140; 87040; 87077; 87086; 87088; 87186; 87804; 99284; A9270-GY; J1650; J1956; J3010; J7120; J7620-GY

== ENCOUNTER 2023-09-14 21:29 | Emergency (ER) | payer MEDICAID, OTHER ==
[2023-09-14] MEDS ORDERED: Sodium Chloride 0.9% 1,000 ML IV ONE (22:12)
[2023-09-14] MEDS ORDERED: Morphine 2 MG/ML SYRINGE IVPUSH ONE (22:12)
[2023-09-14] MEDS ORDERED: Ondansetron 4 MG/2 ML SDV IVPUSH STA (22:13)
[2023-09-14 22:38] LABS: BASOPHILS ABSOLUTE AUTO 0.02 10^3/uL (0.00-0.50); BASOPHILS PERCENT AUTO 0.3 % (0-1); EOSINOPHILS ABSOLUTE AUTO 0.06 10^3/uL (0.00-1.50); EOSINOPHILS PERCENT AUTO 0.8 % (0-6); HEMATOCRIT 37.4 % (37.0-47.0); HEMOGLOBIN 12.6 g/dL (12.0-16.0); IMMATURE GRAN ABSOLUTE AUTO 0.01 10^3/uL (0.00-0.49); IMMATURE GRAN PERCENT AUTO 0.1 % (0.0-4.9); LYMPHOCYTES PERCENT AUTO 32.2 % (24-44); MEAN CORPUSCULAR HEMOGLOBIN 30.3 pg (27.0-32.0); MEAN CORPUSCULAR HGB CONC 33.7 g/dL (32.0-36.0); MEAN CORPUSCULAR VOLUME 89.9 fL (83.0-97.0); MONOCYTES ABSOLUTE AUTO 0.43 10^3/uL (0.00-1.50); MONOCYTES PERCENT AUTO 5.5 % (0-10); NEUTROPHILS ABSOLUTE AUTO 4.74 x10^3/uL (1.80-8.00); NEUTROPHILS PERCENT AUTO 61.1 % (41-71); PLATELET COUNT,PLT 277 10^3/uL (150-400); RED BLOOD CELL COUNT 4.16 x10^6/uL (4.00-5.50); WHITE BLOOD CELL COUNT,WBC 7.8 10^3/uL (4.0-11.0)
[2023-09-14 22:41] LABS: APPEARANCE,URINE CLEAR (CLEAR); BILIRUBIN,URINE NEGATIVE (NEGATIVE); COLOR,URINE YELLOW (YELLOW); GLUCOSE,URINE NEGATIVE (NEGATIVE); KETONES,URINE NEGATIVE (NEGATIVE); LEUKOCYTE ESTERASE,URINE NEGATIVE (NEGATIVE); NITRITE,URINE NEGATIVE (NEGATIVE); OCCULT BLOOD,URINE NEGATIVE (NEGATIVE); PH,URINE 6.5 (4.5-8.0); PROTEIN,URINE NEGATIVE (NEGATIVE); UROBILINOGEN,URINE 0.2 EU/dL (0.2-1.0)
[2023-09-14] MEDS ORDERED: Iopamidol 755 Mg/ML 100 ML Bottle IVPUSH ONE (22:50)
[2023-09-14 22:51] LABS: ALANINE AMINOTRANSFERASE,ALT 38 U/L (12-78); ALBUMIN 3.6 g/dL (3.4-5.0); ALKALINE PHOSPHATASE 52 U/L (46-116); ASPARTATE AMNIOTRANSFERASE,AST 11 U/L (15-37); BILIRUBIN TOTAL 0.3 mg/dL (0.0-1.0); BLOOD UREA NITROGEN,BUN 11 mg/dL (7-18); CALCIUM 8.7 mg/dL (8.4-10.1); CARBON DIOXIDE,CO2 25 mmol/L (21-32); CHLORIDE,CL 104 mEq/L (98-106); CREATININE 0.7 mg/dL (0.6-1.0); EST CRCL DRUG DOSING (CG) 90.41 mL/min; GLUCOSE RANDOM 163 mg/dL (75-99); LIPASE 32 U/L (16-77); MAGNESIUM 1.7 mg/dL (1.8-2.4); POTASSIUM,K 3.9 mEq/L (3.5-5.0); PROTEIN TOTAL,TP 6.8 g/dL (6.4-8.2); SODIUM,NA 140 mEq/L (136-145)
[2023-09-14 22:52] LABS: C-REACTIVE PROTEIN < 0.50 mg/dL (<=0.50); ESTIMATED GFR 111 mL/min (>=60)
[2023-09-14 23:45] VITALS: BP 118/73; PULSE 83
== END 2023-09-14 23:50 | disposition home or self-care (01) ==
LOC: CC.ED 21:29
DX: R10.12 Left upper quadrant pain (principal); I10 Essential (primary) hypertension; E78.00 Pure hypercholesterolemia, unspecified; K21.9 Gastro-esophageal reflux disease without esophagitis; F17.210 Nicotine dependence, cigarettes, uncomplicated; Z90.49 Acquired absence of other specified parts of digestive tract; Z79.899 Other long term (current) drug therapy; Z91.040 Latex allergy status; Z88.8 Allergy status to other drugs, medicaments and biological substances; Z20.822 Contact with and (suspected) exposure to COVID-19
CPT/HCPCS: 36415; 74177; 80053; 81003; 81025; 83690; 83735; 85025; 86140; 87804; 96374; 96375; 99284; 99284-25; J2270; J2405; J7030; Q9967; U0002

== ENCOUNTER 2023-12-07 12:37 | Emergency (ER) | payer MEDICAID, OTHER ==
[2023-12-07 12:40] VITALS: BP 139/95; PULSE 111
[2023-12-07] MEDS: methylPREDNISolone Sodium Succinate 40 MG/1 ML SDV IM ONE ×2 (13:45→13:46)
[2023-12-07] MEDS: Take Home: Amoxicillin 500 MG Cap, 2 Cap Pack PO ONE (13:45)
== END 2023-12-07 13:54 | disposition home or self-care (01) ==
LOC: CC.ED 12:37
DX: J03.00 Acute streptococcal tonsillitis, unspecified (principal); E78.00 Pure hypercholesterolemia, unspecified; I10 Essential (primary) hypertension; Z88.8 Allergy status to other drugs, medicaments and biological substances; Z91.040 Latex allergy status; Z79.899 Other long term (current) drug therapy; Z86.19 Personal history of other infectious and parasitic diseases
CPT/HCPCS: 87651-QW; 87804; 96372; 99283; A9270-GY; J2920; U0002

== ENCOUNTER 2024-05-27 07:52 | Day surgery (SDC) | payer OTHER ==
[2024-05-27] MEDS ORDERED: Lactated Ringers 1,000 ML IV SCH (08:00)
[2024-05-27] MEDS ORDERED: Midazolam 1 MG/ML 2 ML SDV ONE (08:52)
[2024-05-27] MEDS ORDERED: fentaNYL 50 MCG/ML SDV ONE ×2 (08:52)
[2024-05-27] MEDS ORDERED: Ketorolac 30 MG/ML SDV ONE (08:52)
[2024-05-27] MEDS ORDERED: Propofol 200 MG/20 ML SDV ONE ×2 (08:52)
[2024-05-27] MEDS ORDERED: Ondansetron 4 MG/2 ML SDV ONE (08:52)
[2024-05-27] MEDS ORDERED: Lidocaine 1% with EPINEPHrine 1:100,000 20 ML MDV INJECT SCH ×2 (09:00)
[2024-05-27] MEDS: Lidocaine 1% with EPINEPHrine 1:100,000 20 ML MDV ONE (09:12)
[2024-05-27] MEDS: Lidocaine 1% with EPINEPHrine 1:100,000 20 ML MDV INJECT ONE (09:12)
[2024-05-27 10:24] VITALS: BP 113/72; PULSE 76
== END 2024-05-27 10:36 | disposition home or self-care (01) ==
LOC: CC.SDS 07:52
PROVIDERS: ATTEND Surgery
DX: D17.23 Benign lipomatous neoplasm of skin and subcutaneous tissue of right leg (principal); I10 Essential (primary) hypertension; K21.9 Gastro-esophageal reflux disease without esophagitis; E78.5 Hyperlipidemia, unspecified
CPT/HCPCS: 00400; 11403; 36415; 84703; J1885; J2250; J2405; J2704; J3010; J3490

== ENCOUNTER 2024-06-21 18:00 | Emergency (ER) | payer OTHER ==
[2024-06-21 18:08] VITALS: BP 144/86; PULSE 86
[2024-06-21 18:41] LABS: BASOPHILS ABSOLUTE AUTO 0.04 10^3/uL (0.00-0.50); BASOPHILS PERCENT AUTO 0.6 % (0-1); EOSINOPHILS ABSOLUTE AUTO 0.07 10^3/uL (0.00-1.50); HEMATOCRIT 38.4 % (37.0-47.0); HEMOGLOBIN 12.6 g/dL (12.0-16.0); IMMATURE GRAN ABSOLUTE AUTO 0.01 10^3/uL (0.00-0.49); IMMATURE GRAN PERCENT AUTO 0.1 % (0.0-4.9); LYMPHOCYTES ABSOLUTE AUTO 2.34 10^3/uL (0.60-5.00); LYMPHOCYTES PERCENT AUTO 32.7 % (24-44); MEAN CORPUSCULAR HEMOGLOBIN 29.6 pg (27.0-32.0); MEAN CORPUSCULAR HGB CONC 32.8 g/dL (32.0-36.0); MEAN CORPUSCULAR VOLUME 90.4 fL (83.0-97.0); MONOCYTES ABSOLUTE AUTO 0.42 10^3/uL (0.00-1.50); MONOCYTES PERCENT AUTO 5.9 % (0-10); NEUTROPHILS ABSOLUTE AUTO 4.27 x10^3/uL (1.80-8.00); NEUTROPHILS PERCENT AUTO 59.7 % (41-71); PLATELET COUNT,PLT 273 10^3/uL (150-400); RED BLOOD CELL COUNT 4.25 x10^6/uL (4.00-5.50); WHITE BLOOD CELL COUNT,WBC 7.2 10^3/uL (4.0-11.0)
[2024-06-21 18:54] LABS: ALANINE AMINOTRANSFERASE,ALT 23 U/L (12-78); ALBUMIN 3.6 g/dL (3.4-5.0); ALKALINE PHOSPHATASE 49 U/L (46-116); ASPARTATE AMNIOTRANSFERASE,AST 10 U/L (15-37); BILIRUBIN TOTAL 0.3 mg/dL (0.0-1.0); BLOOD UREA NITROGEN,BUN 9 mg/dL (7-18); C-REACTIVE PROTEIN < 0.50 mg/dL (<=0.50); CARBON DIOXIDE,CO2 26 mmol/L (21-32); CHLORIDE,CL 103 mEq/L (98-106); CREATININE 0.7 mg/dL (0.6-1.0); ESTIMATED GFR 111 mL/min (>=60); GLUCOSE RANDOM 143 mg/dL (75-99); POTASSIUM,K 3.9 mEq/L (3.5-5.0); PROTEIN TOTAL,TP 6.5 g/dL (6.4-8.2); SODIUM,NA 139 mEq/L (136-145)
[2024-06-21] MEDS: Take Home: Ondansetron 4 MG Tab.DIS, 2 Tab Pack PO ONE (19:05)
[2024-06-21] MEDS: Ketorolac 30 MG/ML SDV IM ONE (19:09)
== END 2024-06-21 19:20 | disposition home or self-care (01) ==
LOC: CC.ED 18:00
DX: R68.83 Chills (without fever) (principal); R51.9 Headache, unspecified; E78.00 Pure hypercholesterolemia, unspecified; I10 Essential (primary) hypertension; K21.9 Gastro-esophageal reflux disease without esophagitis; Z91.048 Other nonmedicinal substance allergy status; Z88.1 Allergy status to other antibiotic agents; Z88.2 Allergy status to sulfonamides; Z88.9 Allergy status to unspecified drugs, medicaments and biological substances
CPT/HCPCS: 36415; 80053; 85025; 86140; 87428; 96372; 99283; 99284; A9270; J1885